=== PATIENT | female | born 1970 | race Caucasian/White ===

== ENCOUNTER 2019-09-04 14:01 | Emergency (ER) | payer OTHER ==
[~2019-09-04] VITALS: Ht 165.1 cm; Wt 98.6 kg
[2019-09-04 14:23] VITALS: BP 137/91
--- NOTE | 2019-09-04 14:59 | PHYS DOC ---
Past History Past Medical History: Hypertension, Other Additional Past Medical Histor: Lupus, PKD Past Surgical History: Appendectomy, Tonsillectomy Alcohol Use: None General Adult EDM: Chief Complaint: MECHANICAL FALL HPI: HPI: 49-year-old female presents with a left lower abdominal pain. The patient fell while she was at work a couple of days ago all of her weight landed on her iPad. It bent the iPad in half. She had significant pain in this area but just assumed it was bruising. She has had a 5 cm area of ecchymosis show up in this area. It has not spread. Is still very tender to the touch. It is also most painful when she twists and sits or stands up. Basically when she flexes her abdominal muscles. She denies any nausea, vomiting, diarrhea, bloody stools. No fever or chills. Urgent care said she had to come here because it was trauma. Review of Systems: Review of Systems: Constitutional: Denies fever or chills Eyes: Denies change in visual acuity HENT: Denies nasal congestion or sore throat Respiratory: Denies cough or shortness of breath Cardiovascular: Denies chest pain or edema GI: Left lower abdominal pain. Denies nausea, vomiting, bloody stools or diarr hea : Denies dysuria Musculoskeletal: Denies back pain or joint pain Integument: Denies rash Neurologic: Denies headache, focal weakness or sensory changes Endocrine: Denies polyuria or polydipsia Lymphatic: Denies swollen glands Psychiatric: Denies depression or anxiety Heart Score: Risk Factors: Risk Factors: DM, Current or recent (<one month) smoker, HTN, HLP, family history of CAD, obesity. Risk Scores: Score 0 - 3: 2.5% MACE over next 6 weeks - Discharge Home Score 4 - 6: 20.3% MACE over next 6 weeks - Admit for Clinical Observation Score 7 - 10: 72.7% MACE over next 6 weeks - Early Invasive Strategies Allergies: Allergies: Allergies Coded Allergies Type Severity Reaction Last Updated Verified Sulfa (Sulfonamide Antibiotics) Allergy Severe Swelling 09/04/19 Yes Penicillins Allergy Unknown Unknown 09/04/19 Yes Physical Exam: PE: Constitutional: Well developed, well nourished, no acute distress, non-toxic appearance. [] HENT: Normocephalic, atraumatic, bilateral external ears normal, oropharynx moist, no oral exudates, nose normal. [] Eyes: PERRLA, EOMI, conjunctiva normal, no discharge. [] Neck: Normal range of motion, no tenderness, supple, no stridor. [] Cardiovascular: Heart rate regular rhythm, no murmur [] Lungs & Thorax: Bilateral breath sounds clear to auscultation [] Abdomen: Bowel sounds normal, soft, tenderness over area of ecchymosis, no masses, no pulsatile masses. [] Skin: Warm, dry, no erythema, no rash. [] Back: No tenderness, no CVA tenderness. [] Extremities: No tenderness, no cyanosis, no clubbing, ROM intact, no edema. [] Neurologic: Alert and oriented X 3, normal motor function, normal sensory function, no focal deficits noted. [] Psychologic: Affect normal, judgement normal, mood normal. [] Current Patient Data: Vital Signs: Vital Signs Date Time Temp Pulse Resp B/P (MAP) Pulse Ox O2 Delivery O2 Flow Rate FiO2 09/04/19 14:23 98.9 88 16 137/91 (106) 94 Room Air EKG: EKG: [] Radiology/Procedures: Radiology/Procedures: [] Course & Med Decision Making: Course & Med Decision Making Pertinent Labs and Imaging studies reviewed. (See chart for details) This appears to be just soft tissue injury and likely bruising of the underlying musculature. No signs of peritonitis. I have advised supportive care and pain management with [id number] medications. She is stable for discharge at this time. [] Dragon Disclaimer: Dragon Disclaimer: This electronic medical record was generated, in whole or in part, using a voice recognition dictation system. Departure Departure: Impression: Primary Impression: Blunt abdominal trauma Qualified Codes: S39.91XA - Unspecified injury of abdomen, initial encounter Disposition: 01 HOME, SELF-CARE Condition: STABLE Referrals: ARETHA MONET DO (PCP) Patient Instructions: Contusion, [id number] JUAN BAILEY DO Sep 04, 2019 14:59
== END 2019-09-04 15:00 | disposition home or self-care (01) ==
LOC: ER 14:01
DX: S30.1XXA Contusion of abdominal wall, initial encounter (principal); I10 Essential (primary) hypertension; Z90.89 Acquired absence of other organs; Z88.2 Allergy status to sulfonamides; Z88.0 Allergy status to penicillin; W18.39XA Other fall on same level, initial encounter; Y93.89 Activity, other specified; Y92.89 Other specified places as the place of occurrence of the external cause; Y99.0 Civilian activity done for income or pay
CPT/HCPCS: 99284

== ENCOUNTER 2020-06-06 03:58 | Emergency (ER) | payer OTHER ==
[~2020-06-06] VITALS: Ht 165.1 cm; Wt 98.6 kg
[2020-06-06 04:13] VITALS: BP 152/91
[2020-06-06] MEDS ORDERED: IBUPROFEN 600 MG TABLET. PO ONE (04:30)
[2020-06-06] MEDS ORDERED: oxyCODONE/APAP 5/325 1 TAB TABLET PO ONE (04:30)
[2020-06-06] MEDS ORDERED: CLINDAMYCIN HCL 150 MG CAPSULE PO ONE (04:30)
--- NOTE | 2020-06-06 04:34 | PHYS DOC ---
Past History Past Medical History: Hypertension, Other Additional Past Medical Histor: Lupus, PKD, SJORGENS Past Surgical History: Appendectomy, Tonsillectomy Alcohol Use: None Adult General Chief Complaint Chief Complaint: DENTAL PROBLEM HPI HPI Patient is a 50-year-old female who presents with dental pain. States she has had a broken tooth on the upper left side of her mouth for about a year and was supposed to see a dentist but has not been able to get in since Covid. States it actually quit hurting for a while but started again last night after eating dinner. States that the pain is sharp in nature, 7 out of 10 and relatively constant. States she has tried some Tylenol and Orajel at home with only m inimal relief. Denies fevers, trouble swallowing, ear pain, nausea, vomiting. Review of Systems Review of Systems Review of systems otherwise unremarkable except for noted in HPI. Allergies Allergies Allergies Coded Allergies Type Severity Reaction Last Updated Verified Sulfa (Sulfonamide Antibiotics) Allergy Severe Swelling 09/04/19 Yes Penicillins Allergy Unknown Unknown 09/04/19 Yes Physical Exam Physical Exam Constitutional: Well developed, well nourished, no acute distress, non-toxic appearance. [] HENT: Normocephalic, atraumatic, bilateral external ears normal, oropharynx moist, no oral exudates, nose normal. Patient's upper left first molar is broken off and has some mild erythema around the site with some tenderness. [] Neck: Normal range of motion, no tenderness, supple, no stridor. [] Cardiovascular:Heart rate regular rhythm, no murmur [] Skin: Warm, dry, no erythema, no rash. [] Neurologic: Alert and oriented X 3, normal motor function, normal sensory function, no focal deficits noted. [] Psychologic: Affect normal, judgement normal, mood normal. [] Current Patient Data Vital Signs Vital Signs Date Time Temp Pulse Resp B/P (MAP) Pulse Ox O2 Delivery O2 Flow Rate FiO2 06/06/20 04:13 98.8 88 18 152/91 (111) 98 Room Air EKG EKG [] Radiology/Procedures Radiology/Procedures [] Heart Score Risk Factors: Risk Factors: DM, Current or recent (<one month) smoker, HTN, HLP, family history of CAD, obesity. Risk Scores: Risk Factors: DM, Current or recent (<one month) smoker, HTN, HLP, family history of CAD, obesity. Course & Med Decision Making Course & Med Decision Making Patient is a 50-year-old female presents with dental pain Vital signs notable for hypertension. Physical exam noted above. Patient offered dental block but politely declined. Started on antibiotics. Started on a pain regimen including ibuprofen, home Orajel placed on a gauze and put in place for 5 minutes and prescription pain m edication. Advised to use the prescription pain medicine only for breakthrough. Given contact information for emergency dentist. Advised to call dentist first thing Sunday morning for probable root canal or tooth removal. Advised to take all the antibiotics as prescribed. Advised to come back to the emergency department with any new or concerning symptoms. Patient grateful, verbalized understanding and agreed with plan of discharge. [] Dragon Disclaimer Dragon Disclaimer This electronic medical record was generated, in whole or in part, using a voice recognition dictation system. Departure Departure: Disposition: 01 NM HOME SELF CARE/HOMELESS Condition: GOOD Referrals: ARETHA MONET DO (PCP) Scripts Oxycodone HCl/Acetaminophen (Percocet 5-325 mg Tablet) 1 Each Tablet 1 TAB PO PRN BID PRN for PAIN MDD 2 Tablet(s) for 5 Days, #10 TAB 0 Refills Prov: FOREIGN MCLAUGHLIN MD 06/06/20 Clindamycin Hcl (CLINDAMYCIN HCL) 300 Mg Capsule 1 CAP PO TID for pain for 10 Days, #30 CAP Prov: FOREIGN MCLAUGHLIN MD 06/06/20 FOREIGN MCLAUGHLIN MD Jun 06, 2020 04:34
[2020-06-06] MEDS ORDERED: CLIN300C9 PO (04:36)
[2020-06-06] MEDS ORDERED: OXYC-325 PO (04:37)
== END 2020-06-06 04:47 | disposition home or self-care (01) ==
LOC: ER 03:58
DX: S02.5XXA Fracture of tooth (traumatic), initial encounter for closed fracture (principal); I10 Essential (primary) hypertension; Z88.2 Allergy status to sulfonamides; Z88.0 Allergy status to penicillin; X58.XXXA Exposure to other specified factors, initial encounter; Y93.89 Activity, other specified; Y92.89 Other specified places as the place of occurrence of the external cause; Y99.8 Other external cause status
CPT/HCPCS: 99284

== ENCOUNTER 2021-05-12 14:59 | Emergency (ER) | payer OTHER ==
[~2021-05-12] VITALS: Ht 165.1 cm; Wt 98.6 kg
[~2021-05-12 14:59] MED LIST: CLIN-95 PO; OXYC-325 PO
[2021-05-12 15:13] VITALS: BP 139/98
[2021-05-12] MEDS ORDERED: CLIN-95 PO (15:40)
[2021-05-12] MEDS ORDERED: HYDR-2155 PO (15:40)
--- NOTE | 2021-05-12 15:41 | PHYS DOC ---
Past History Past Medical History: Hypertension, Other Additional Past Medical Histor: Lupus, PKD, SJORGENS Past Surgical History: Appendectomy, Tonsillectomy Additional Past Surgical Histo: hip Alcohol Use: None General Adult EDM: Chief Complaint: SKIN RASH/ABSCESS HPI: HPI: Patient is a [age] year old [sex] who presents with [] Review of Systems: Review of Systems: Constitutional: Denies fever or chills Eyes: Denies change in visual acuity HENT: Denies nasal congestion or sore throat Respiratory: Denies cough or shortness of breath Cardiovascular: Denies chest pain or edema GI: Denies abdominal pain, nausea, vomiting, bloody stools or diarrhea : Denies dysuria Musculoskeletal: Denies back pain or joint pain Integument: Denies rash Neurologic: Denies headache, focal weakness or sensory changes Endocrine: Denies polyuria or polydipsia Lymphatic: Denies swollen glands Psychiatric: Denies depression or anxiety Allergies: Allergies: Allergies Coded Allergies Type Severity Reaction Last Updated Verified Sulfa (Sulfonamide Antibiotics) Allergy Severe Swelling 09/04/19 Yes Penicillins Allergy Unknown Unknown 09/04/19 Yes Physical Exam: PE: Constitutional: Well developed, well nourished, no acute distress, non-toxic appearance. [] HENT: Normocephalic, atraumatic, bilateral external ears normal, oropharynx moist, no oral exudates, nose normal. [] Eyes: PERRLA, EOMI, conjunctiva normal, no discharge. [] Neck: Normal range of motion, no tenderness, supple, no stridor. [] Cardiovascular:Heart rate regular rhythm, no murmur [] Lungs & Thorax: Bilateral breath sounds clear to auscultation [] Abdomen: Bowel sounds normal, soft, no tenderness, no masses, no pulsatile masses. [] Skin: Warm, dry, no erythema, no rash. [] Back: No tenderness, no CVA tenderness. [] Extremities: No tenderness, no cyanosis, no clubbing, ROM intact, no edema. [] Neurologic: Alert and oriented X 3, normal motor function, normal sensory f unction, no focal deficits noted. [] Psychologic: Affect normal, judgement normal, mood normal. [] Current Patient Data: Vital Signs: Vital Signs Date Time Temp Pulse Resp B/P (MAP) Pulse Ox O2 Delivery O2 Flow Rate FiO2 05/12/21 15:13 98.3 139/98 (112) 100 EKG: EKG: [] Radiology/Procedures: Radiology/Procedures: [] Heart Score: Risk Factors: Risk Factors: DM, Current or recent (<one month) smoker, HTN, HLP, family history of CAD, obesity. Risk Scores: Score 0 - 3: 2.5% MACE over next 6 weeks - Discharge Home Score 4 - 6: 20.3% MACE over next 6 weeks - Admit for Clinical Observation Score 7 - 10: 72.7% MACE over next 6 weeks - Early Invasive Strategies Course & Med Decision Making: Course & Med Decision Making Pertinent Labs and Imaging studies reviewed. (See chart for details) [] Dragon Disclaimer: Dragon Disclaimer: This electronic medical record was generated, in whole or in part, using a voice recognition dictation system. Departure Departure: Impression: Primary Impression: Olecranon bursitis of right elbow Disposition: HOME / SELF CARE / HOMELESS Condition: STABLE Referrals: ARETHA MONET DO (PCP) DWIGHT JASON II, MD Patient Instructions: Cellulitis, [id number], Olecranon Bursitis, [id number] Additional Instructions: Use KT tape to support elbow. Take over the counter Ibuprofen or Naproxen in addition to prescribed pain medications. If symptoms worsen or for fever > 100.3, please present directly to ED that has Orthopedic surgery capability such as [facility], , or [facility]. Scripts Hydrocodone Bit/Acetaminophen (HYDROCODONE-APAP 5-325 ) 1 Each Tablet 0.5-1 TAB PO PRN Q6HRS PRN for PAIN, #14 TAB 0 Refills Prov: NIKIA SOLORIO DO 05/12/21 Clindamycin Hcl (CLINDAMYCIN HCL) 300 Mg Capsule 1 CAP PO TID for infection for 10 Days, #30 CAP Prov: NIKIA SOLORIO DO 05/12/21 NIKIA SOLORIO DO May 12, 2021 15:41
[2021-05-12] MEDS ORDERED: CLINDAMYCIN HCL 150 MG CAPSULE PO ONE (15:45)
== END 2021-05-12 15:58 | disposition home or self-care (01) ==
LOC: ER 14:59
DX: M70.21 Olecranon bursitis, right elbow (principal); I10 Essential (primary) hypertension; Z88.0 Allergy status to penicillin; Z88.2 Allergy status to sulfonamides
CPT/HCPCS: 99283-25